=== PATIENT | female | born 1990 | race American Indian/Alaskan Native ===

== ENCOUNTER 2018-06-27 20:50 | Emergency (ER) | payer OTHER ==
[2018-06-27] MEDS: NACL 0.9% 1000 ML 1,000 ML IV ONE ×2 (21:22→22:33)
[2018-06-27 21:58] LABS: Alanine Aminotransferase 14 units/L (7-56); Albumin 4.4 g/dL (3.9-5); BUN/Creatinine Ratio 16; Blood Urea Nitrogen 8 mg/dL (7-17); Calcium 8.8 mg/dL (8.4-10.2); Hemolysis Index 5
[2018-06-27 21:59] LABS: Bacteria,Urine 1+ /HPF (Negative); Bilirubin,Urine NEG (Negative); Blood,Urine SM (Negative); Color,Urine Yellow (Yellow); Mucus,Urine FEW /HPF; Protein,Urine <15 mg/dL mg/dL (Negative)
[2018-06-27] MEDS ORDERED: TORADOL IM ONE (22:09)
[2018-06-27] MEDS ORDERED: XYLOCAINE 1% MPF 5 mL INFILTRATI ONE (22:11)
[2018-06-27] MEDS ORDERED: ZITHROMAX PO ONE (22:11)
[2018-06-27] MEDS ORDERED: ROCEPHIN IM ONE (22:11)
--- NOTE | 2018-06-27 22:16 | Emergency Department Report ---
HPI - General Chief Complaint: Abdominal Pain Time Seen by Provider: 06/27/18 22:00 - [facility] HPI: Room 26 The patient is a 28-year-old female presenting with a chief complaint of abdominal pain. The patient states she has had white vaginal discharge for the past 1-2 days and dysuria. Patient denies hematuria or fever but admits to feeling chills. Patient states she had some episodes of nausea but no vomiting. Patient admits to an episode of diarrhea this morning. Patient states her diffuse abdominal pain has been constant. Patient gives her pain score of 8/10 Location: [See above] Duration: [See above] Quality: Pain Severity:8/10 Modifying factors: [see above] Context: [see above] Mode of transportation: The patient drove herself to the emergency department and there are no visitors present ED Past Medical Hx - Past Medical History Previous Medical History?: No - Surgical History Past Surgical History?: Yes Additional Surgical History: x2 - Family History Family history: no significant - Social History Smoking Status: Never Smoker Substance Use Type: None (denies illicit drug use), Alcohol (occasional) - Medications Home Medications: Home Medications Medication Instructions Recorded Confirmed Last Taken Type Ciprofloxacin HCl [Ciprofloxacin 500 mg PO Q12H #14 tab 06/28/18 Unknown Rx TAB] HYDROcodone/APAP 5-325 [Ramona 1 - 2 each PO Q6HR PRN #14 tablet 06/28/18 Unknown Rx 5/325] Promethazine [Phenergan TAB] 25 mg PO Q6HR PRN #20 tab 06/28/18 Unknown Rx metroNIDAZOLE [Flagyl] 500 mg PO Q12HR #14 tab 06/28/18 Unknown Rx ED Review of Systems ROS: Stated complaint: BODY, ABDOMINAL PAIN Other details as noted in HPI Constitutional: chills. denies: fever Eyes: denies: eye pain ENT: denies: throat pain Respiratory: no symptoms reported Cardiovascular: denies: chest pain Endocrine: no symptoms reported Gastrointestinal: abdominal pain, nausea, diarrhea. denies: vomiting Genitourinary: dysuria, discharge Neurological: denies: headache Physical Exam - Physical Exam Vital Signs: Vital Signs 06/27/18 21:09 Temperature 98.5 F Pulse Rate 91 H Respiratory 14 Rate Blood Pressure 116/85 O2 Sat by Pulse 99 Oximetry Physical Exam: GENERAL: The patient is well-developed well-nourished female lying on stretcher not appearing to be in acute distress. [] HEENT: Normocephalic. Atraumatic. Extraocular motions are intact. Patient has moist mucous membranes. NECK: Supple. Trachea midline CHEST/LUNGS: Clear to auscultation. There is no respiratory distress noted. HEART/CARDIOVASCULAR: Regular. There is no tachycardia. There is no gallop rub or murmur. ABDOMEN: Abdomen is soft, with diffuse discomfort to palpation. There is no rebound or guarding. Patient has normal bowel sounds. There is no abdominal distention. SKIN: There is no rash. There is no edema. There is no diaphoresis. NEURO: The patient is awake, alert, and oriented. The patient is cooperative. The patient has normal speech MUSCULOSKELETAL: There is no evidence of acute injury. ED Course Vital Signs 06/27/18 21:09 Temperature 98.5 F Pulse Rate 91 H Respiratory 14 Rate Blood Pressure 116/85 O2 Sat by Pulse 99 Oximetry ED Medical Decision Making - Lab Data Result diagrams: 06/28/18 00:00 06/27/18 21:26 Laboratory Tests 06/27/18 06/27/18 06/27/18 21:26 21:26 21:41 WBC RBC Hgb Hct MCV MCH MCHC RDW Plt Count Lymph % (Auto) Hood % (Auto) Eos % (Auto) Baso % (Auto) Lymph # Hood # Eos # Baso # Seg Neutrophils % Seg Neutrophils # Sodium 137 Potassium 4.1 Chloride 100.6 Carbon Dioxide 23 Anion Gap 18 BUN 8 Creatinine 0.5 L Estimated GFR > 60 BUN/Creatinine Ratio 16 Glucose 94 Calcium 8.8 Total Bilirubin 0.70 AST 21 ALT 14 Alkaline Phosphatase 71 Total Protein 8.0 Albumin 4.4 Albumin/Globulin Ratio 1.2 HCG, Qual Negative Urine Color Yellow Urine Turbidity Clear Urine pH 5.0 Ur Specific [place] 1.016 Urine Protein <15 mg/dl Urine Glucose (UA) Neg Urine Ketones Tr Urine Blood Sm Urine Nitrite Neg Urine Bilirubin Neg Urine Urobilinogen 2.0 Ur Leukocyte Esterase Mod Urine WBC (Auto) 18.0 H Urine RBC (Auto) 8.0 U Epithel Cells (Auto) 2.0 Urine Bacteria (Auto) 1+ Urine Mucus Few 06/28/18 00:00 WBC 7.0 RBC 4.31 Hgb 13.5 Hct 39.1 MCV 91 MCH 31 MCHC 35 H RDW 13.2 Plt Count 207 Lymph % (Auto) 14.9 Hood % (Auto) 5.1 Eos % (Auto) 1.2 Baso % (Auto) 0.2 Lymph # 1.0 L Hood # 0.4 Eos # 0.1 Baso # 0.0 Seg Neutrophils % 78.6 H Seg Neutrophils # 5.5 Sodium Potassium Chloride Carbon Dioxide Anion Gap BUN Creatinine Estimated GFR BUN/Creatinine Ratio Glucose Calcium Total Bilirubin AST ALT Alkaline Phosphatase Total Protein Albumin Albumin/Globulin Ratio HCG, Qual Urine Color Urine Turbidity Urine pH Ur Specific [place] Urine Protein Urine Glucose (UA) Urine Ketones Urine Blood Urine Nitrite Urine Bilirubin Urine Urobilinogen Ur Leukocyte Esterase Urine WBC (Auto) Urine RBC (Auto) U Epithel Cells (Auto) Urine Bacteria (Auto) Urine Mucus Wet prep- >/= 20% clue cells, no yeast, no Trichomonas - Differential Diagnosis urethritis, UTI, Trichomonas vaginalis Critical care attestation.: If time is entered above; I have spent that time in minutes in the direct care of this critically ill patient, excluding procedure time. ED Disposition Clinical Impression: UTI (urinary tract infection), Bacterial vaginosis, Abdominal pain Disposition: TO HOME OR SELFCARE Is pt being admited?: No Does the pt Need Aspirin: No Condition: Stable Instructions: Abdominal Pain (ED), Bacterial Vaginosis (ED) Additional Instructions: Return to the emergency department immediately should you develop worsening symptoms, fever, inability to tolerate food or liquid or any other concerns. Prescriptions: Ciprofloxacin HCl [Ciprofloxacin TAB] 500 mg PO Q12H #14 tab HYDROcodone/APAP 5-325 [Ramona 5/325] 1 - 2 each PO Q6HR PRN #14 tablet PRN Reason: Pain metroNIDAZOLE [Flagyl] 500 mg PO Q12HR #14 tab Promethazine [Phenergan TAB] 25 mg PO Q6HR PRN #20 tab PRN Reason: Nausea Referrals: GERMANIA MONTEZ MD [Primary Care Provider] - 3-5 Days Forms: STI Treatment and Prevention Time of Disposition: 01:25
[2018-06-27] MEDS ORDERED: ZOFRAN IV ONE (22:42)
[2018-06-28 00:09] LABS: Basophils % (Auto) 0.2 % (0.0-1.8); Eosinophils # (Auto) 0.1 K/mm3 (0.0-0.4); Eosinophils % (Auto) 1.2 % (0.0-4.3); Hematocrit 39.1 % (30.3-42.9); Hemoglobin 13.5 gm/dl (10.1-14.3); Lymphocytes % (Auto) 14.9 % (13.4-35.0); Mean Corpuscular HGB Conc 35 % (30-34); Mean Corpuscular Volume 91 fl (79-97); Monocytes # (Auto) 0.4 K/mm3 (0.0-0.8); Monocytes % (Auto) 5.1 % (0.0-7.3); Platelet Count 207 K/mm3 (140-440); Red Blood Count 4.31 M/mm3 (3.65-5.03); Red Cell Distribution Width 13.2 % (13.2-15.2)
[2018-06-28 01:47] VITALS: BP 128/84
== END 2018-06-28 01:47 | disposition home or self-care (01) ==
LOC: ED 20:50
DX: N39.0 Urinary tract infection, site not specified (principal); N76.0 Acute vaginitis; B96.89 Other specified bacterial agents as the cause of diseases classified elsewhere
CPT/HCPCS: 36415; 80053; 81001; 84703; 85025; 87210; 87591; 96361; 96372; 96374; 99284; J0696; J1885; J2405; J7030